=== PATIENT | male | born 2000 | race Caucasian/White ===

== ENCOUNTER 2025-06-20 10:35 | Emergency (ER) | payer OTHER ==
[~2025-06-20] VITALS: Ht 180.3 cm; Wt 82.1 kg
[2025-06-20 11:16] LABS: PLATELET COUNT (AUTO) 221 K/uL (150-450); RED BLOOD CELL COUNT(AUTO) 5.47 MIL/uL (4.50-5.90); RED CELL DISTRIBUTION WIDTH 13.7 % (11.5-14.5); WHITE BLOOD COUNT (AUTO) 4.0 K/uL (4.5-11.0)
[2025-06-20 11:36] LABS: SODIUM SERUM 138 mmol/L (136-145)
[2025-06-20 11:38] LABS: GLUCOSE,RANDOM 103 mg/dL (70-110)
[2025-06-20 11:39] LABS: CALCIUM, TOTAL 8.6 mg/dL (8.8-10.5); CREATININE 0.89 mg/dL (0.60-1.30); GLOMERULAR FILTR. RATE CALC > 60 mL/min (>60); UREA NITROGEN, BLOOD 12 mg/dL (7-18)
[2025-06-20] MEDS: KETOROLAC TROMETHAMINE 30 MG/ML VIAL IVP ONE (12:34)
[2025-06-20] MEDS ORDERED: SODIUM CHLORIDE 0.9% 100 ML ONE (14:42)
[2025-06-20] MEDS ORDERED: 0.9% SODIUM CHLORIDE 10 ML SYRINGE IVP ONE (14:42)
[2025-06-20] MEDS ORDERED: IOHEXOL 350 MG/ML 100 ML VIAL ONE (14:42)
[2025-06-20 15:11] LABS: ABG BASE EXCESS 3.8 mmol/L (-2.0-3.0); ABG CARBOXYHEMOGLOBIN 0.7 % (0.5-1.5); ABG HCO3 27.6 mmol/L (21.0-28.0); ABG METHEMOGLOBIN 0.8 % (0.0-1.5); ABG OXYGEN CONTENT 21.9 mL/dL (15.0-23.0); ABG OXYGEN SATURATION 97.9 % (94.0-98.0); ABG OXYHEMOGLOBIN 96.4 % (94.0-98.0); ABG PCO2 40 mmHg (32.0-48.0); ABG PH 7.459 (7.350-7.450); ABG TOTAL HEMOGLOBIN 16.1 G/dL (13.5-17.5); FRACTIONATED INSPIRED OXYGEN 21.0 % (21-100.0); PO2, ARTERIAL BG 97.0 mmHg (83.0-108.0); SOURCE, BLOOD GAS ARTERIAL; TEMPERATURE, FAHRENHEIT, BG 97.7 FAHREN (96.0-98.6)
[2025-06-20 15:12] LABS: ALLEN TEST, BLOOD GAS Positive; O2 DEVICE,BLOOD GAS ROOM AIR (ROOM AIR); SITE, BLOOD GAS RT RADIAL
[2025-06-20] MEDS ORDERED: IBUP-1492 PO (16:20)
[2025-06-20 16:25] VITALS: BP 132/69; PULSE 55; RESP 12; O2SAT 99
== END 2025-06-20 16:39 | disposition home or self-care (01) ==
LOC: EMS 10:39
DX: R07.89 Other chest pain (principal); R06.02 Shortness of breath; Z88.0 Allergy status to penicillin
CPT/HCPCS: 99285; 71250; 96374; 71045; 80048; 85025; 36415; 82805; 71275; 93005; J1885; Q9967; J7050